=== PATIENT | male | born 1985 | race Caucasian/White ===

== ENCOUNTER → 2018-12-30 | Outpatient (CLI) | payer OTHER, SELFPAY ==
[2018-12-30 12:23] LABS: Absolute Lymphocyte Count 2.32 X10^3/uL (0.83-4.51); Basophil# 0.08 X10^3/uL; Eosinophil# 0.26 X10^3/uL; Eosinophils% 3.4 % (0-5); Hematocrit 46.6 % (40-54); Hemoglobin 15.6 g/dL (13.0-16.5); Lymphocyte # 2.32 X10^3/ul (4.0); Lymphocyte % 30.2 % (19-41); Mean Corp Hgb Conc 33.5 g/dL (32-36); Mean Corpuscular Hgb 31.9 pg (27.0-32.0); Mean Corpuscular Volume 95.3 fL (80-94); Mean Platelet Vol. 10.8 fl (6.2-12.0); Monocyte# 0.96 X10^3/uL; Monocyte% 12.5 % (0-10); NRBC Flagged by Analyzer 0 % (0-5); Neutrophil # 4.03 X10^3/uL (2.7-7.7); Neutrophil % 52.5 % (47-70); Platelet Count 254 K/mm3 (150-450); RBC Distribution Width CV 12.3 % (11.6-14.6); RBC Distribution Width SD 42.5 fl (35.1-43.9); Red Blood Count 4.89 M/mm3 (4.6-6.2); White Blood Count 7.7 K/mm3 (4.4-11.0)
[2018-12-30 13:00] LABS: ALB/GLOB Ratio 1.1 RATIO (0.9-2.4); AST(SGOT) 42 U/L (15-37); Alanine Aminotransfer ALT/SGPT 61 U/L (16-61); Albumin, Serum 4.2 g/dL (3.2-5.0); Alkaline Phosphatase 76 U/L (45-117); Anion Gap 10 (5-15); BUN 12 mg/dL (7-18); BUN/Creat Ratio 13.6 RATIO (10-20); Calcium,Total 9.4 mg/dL (8.5-10.1); Chloride 103 mmol/L (98-107); Cholesterol 190 mg/dL (200); Creatinine, Serum 0.88 mg/dL (0.70-1.30); EST Glomerular Filtration Rate 104 mL/min (>60); Est Glom Filt Rate - Afr Amer 126 mL/min (>60); Globulin 3.9 g/dL (2.2-4.2); Glucose 86 mg/dL (74-106); High Density Lipoprotein 89 mg/dL; Lipase 163 U/L (73-393); Potassium 3.9 mmol/L (3.5-5.1); Protein, Total 8.1 g/dL (6.4-8.2); Sodium Level 139 mmol/L (136-145); Triglycerides 73 mg/dL; Very Low Density Lipoprotein 15 mg/dL (5-40)
== END | disposition home or self-care (01) ==
LOC: BFHLAB 09:08
PROVIDERS: Family Provider Family Medicine; PCP Family Medicine; Visit Provider Family Medicine
DX: I10 Essential (primary) hypertension (principal); R10.9 Unspecified abdominal pain
CPT/HCPCS: 36415; 80053; 80061; 83690; 85025

== ENCOUNTER → 2018-12-31 | Outpatient (CLI) | payer OTHER, SELFPAY ==
[2018-12-31 07:42] LABS: Microalbumin,Random Urine 21.3 mg/L (NO RANGE EST.); Microalbumin:Creatinine Ratio 7.2 mg/g CRE (<30 mg/g CRE)
== END | disposition home or self-care (01) ==
LOC: LABSPEC 06:26
PROVIDERS: Family Provider Family Medicine; PCP Family Medicine; Referring Provider Family Medicine; Visit Provider Family Medicine
DX: I10 Essential (primary) hypertension (principal); R10.9 Unspecified abdominal pain
CPT/HCPCS: 82043; 82570

== ENCOUNTER → 2019-01-13 | Outpatient (CLI) | payer OTHER, SELFPAY ==
--- NOTE | 2019-01-13 07:18 | US_ITS ---
STUDY: ABDOMINAL ULTRASOUND - RIGHT UPPER QUADRANT REASON FOR VISIT: Male, 33 years old. Right upper quadrant pain. Alcohol abuse. TECHNIQUE: Ultrasound evaluation of the right upper quadrant was performed with real-time and static owen-scale imaging. TECHNICAL QUALITY: Adequate. COMPARISON: None. FINDINGS: Liver: The liver measures 17.7 cm. There is increased echogenicity consistent with fatty infiltration. The bile ducts are within normal limits. There is hepatic color flow. The direction of portal flow is hepatopetal. There is no demonstrated mass lesion. Gallbladder: Normal distended gallbladder. The gallbladder wall measures 2.6 mm. There is a negative sonographic West's sign. There is no pericholecystic fluid. There are no gallstones. Common Bile Duct (C.B.D.): The common bile duct measures 4.7 mm. Pancreas: Normal size of the head, body and tail of the pancreas. There is normal echogenicity of the pancreas. There is no demonstrated pancreatic mass or cyst. Right Kidney: Normal size of the right kidney. The right kidney measures 11.1 cm x 5.4 cm x 4.8 cm. Normal renal cortex. The right cortex measures 1.7 cm. There is no demonstrated renal mass or cyst. There is no right hydronephrosis. US/Abdomen Limited IMPRESSION: Mild hepatomegaly with fatty infiltration of the liver. Electronically Signed: Marco Ayoub, at 15:47 EDT , Service support ,
== END | disposition home or self-care (01) ==
PROVIDERS: Family Provider Family Medicine; PCP Family Medicine; Referring Provider Family Medicine; Visit Provider Family Medicine
DX: R10.11 Right upper quadrant pain (principal)
CPT/HCPCS: 76705

== ENCOUNTER → 2019-03-22 | Outpatient (CLI) | payer OTHER, SELFPAY ==
[2019-03-22 13:08] LABS: Anion Gap 10 (5-15); BUN 13 mg/dL (7-18); BUN/Creat Ratio 15.1 RATIO (10-20); Calcium,Total 9.1 mg/dL (8.5-10.1); Chloride 102 mmol/L (98-107); Creatinine, Serum 0.86 mg/dL (0.70-1.30); EST Glomerular Filtration Rate 107 mL/min (>60); Est Glom Filt Rate - Afr Amer 130 mL/min (>60); Glucose 84 mg/dL (74-106); Potassium 3.9 mmol/L (3.5-5.1); Sodium Level 138 mmol/L (136-145)
== END | disposition home or self-care (01) ==
LOC: BFHLAB 08:48
PROVIDERS: Family Provider Family Medicine; PCP Family Medicine; Visit Provider Family Medicine
DX: N17.9 Acute kidney failure, unspecified (principal)
CPT/HCPCS: 36415; 80048

== ENCOUNTER → 2022-09-23 | Outpatient (CLI) | payer BC, SELFPAY ==
[2022-09-23 10:50] LABS: Absolute Lymphocyte Count 2.49 X10^3/uL (0.83-4.51); Basophil# 0.05 X10^3/uL; Basophil% 0.8 % (0-1); Eosinophil# 0.37 X10^3/uL; Eosinophils% 5.6 % (0-5); Hematocrit 41.7 % (40-54); Hemoglobin 14.2 g/dL (13.0-16.5); Lymphocyte # 2.49 X10^3/ul (0.83-4.51); Mean Corp Hgb Conc 34.1 g/dL (32-36); Mean Corpuscular Hgb 32.6 pg (27.0-32.0); Mean Corpuscular Volume 95.9 fL (80-94); Mean Platelet Vol. 10.1 fl (6.2-12.0); Monocyte# 0.58 X10^3/uL; Monocyte% 8.9 % (0-10); NRBC Flagged by Analyzer 0 % (0-5); Neutrophil # 3.03 X10^3/uL (2.7-7.7); Neutrophil % 46.2 % (47-70); Platelet Count 294 K/mm3 (150-450); RBC Distribution Width CV 12.8 % (11.6-14.6); RBC Distribution Width SD 45.5 fl (35.1-43.9); Red Blood Count 4.35 M/mm3 (4.6-6.2); White Blood Count 6.6 K/mm3 (4.4-11.0)
[2022-09-23 11:00] LABS: ALB/GLOB Ratio 1.1 RATIO (0.9-2.4); AST(SGOT) 39 U/L (15-37); Alanine Aminotransfer ALT/SGPT 40 U/L (16-61); Alkaline Phosphatase 53 U/L (45-117); Anion Gap 7 (5-15); BUN 10 mg/dL (7-18); BUN/Creat Ratio 12.4 RATIO (10-20); Chloride 107 mmol/L (98-107); Cholesterol 193 mg/dL (200); Creatinine, Serum 0.81 mg/dL (0.70-1.30); EST Glomerular Filtration Rate 113 mL/min (>60); Est Glom Filt Rate - Afr Amer 137 mL/min (>60); Globulin 3.8 g/dL (2.2-4.2); Glucose 99 mg/dL (74-106); High Density Lipoprotein 100 mg/dL; Potassium 4.3 mmol/L (3.5-5.1); Protein, Total 7.8 g/dL (6.4-8.2); Sodium Level 142 mmol/L (136-145); Triglycerides 76 mg/dL; Very Low Density Lipoprotein 15 mg/dL (5-40)
== END | disposition home or self-care (01) ==
LOC: BFHLAB 09:32
PROVIDERS: PCP Family Medicine; Referring Provider Family Medicine; Visit Provider Family Medicine
DX: Z00.00 Encounter for general adult medical examination without abnormal findings (principal)
CPT/HCPCS: 36415; 80053; 80061; 85025